=== PATIENT | female | born 2000 | race Caucasian/White ===

== ENCOUNTER 2022-06-12 07:55 | Emergency (ER) | payer OTHER ==
[2022-06-12] VITALS (9 sets, daily range): BP systolic 112–143; BP diastolic 58–96
[~2022-06-12] VITALS: Ht 170.2 cm; Wt 61.0 kg
[~2022-06-12 07:55] MED LIST: AMOXICILLIN250 M2 PO; AMOXICILLIN500 MG PO; AUGMENTIN500TAB PO; AUGMENTIN875TAB PO; AUGMENTINES600 PO; FLUMIST NASA1 LIQ; LOSARTAN POT50 MG PO; MIRACLEMM PO; MUPIROCIN2 % EX; NASONEX50 MCG/AC; OMNICEF300 MG PO; ONDANSETRON4 MG PO; TAMIFLU6 MG/ML PO; TRAMADOL HCL50 MG PO; VERAMYST27.5 MCG; ZOFRAN ODT4 MG PO
[2022-06-12 08:39] LABS: HEMATOCRIT 33.3 % (37.0-47.0); HEMOGLOBIN 11.5 g/dl (12.0-16.0); IMMATURE GRANULOCYTES 0.2 % (0.0-5.0); MEAN CELL VOLUME 84.5 fL CALC (80.0-100.0); MEAN CORPUSCULAR HGB 29.2 pG CALC (26.0-32.0); MEAN CORPUSCULAR HGB CONC 34.5 g/dL CAL (32.0-36.0); NEUT# 3.51 thou/uL (2.00-7.15); RED BLOOD COUNT 3.94 mill/uL (4.20-5.60); RED CELL DISTRI WIDTH 14.3 % (11.5-15.5)
[2022-06-12 08:51] LABS: ALBUMIN 4.4 g/dL (3.2-5.0); ALKALINE PHOSPHATASE 30 u/l (38-126); ANION GAP 12 (6-22 (CALC)); BILIRUBIN, TOTAL 0.5 mg/dL (0.0-1.4); BUN 8 mg/dL (7-17); BUN/CREATININE RATIO 14 (12-20 (CALC)); CARBON DIOXIDE 23 mmol/l (22-30); CHLORIDE 105 mmol/l (95-108); CREATININE 0.6 mg/dL (0.5-1.0); GFR FOR AFR.AMER. > 60 ML/MIN (>=60 (CALC)); GFR OTHER RACES > 60 ML/MIN (>=60 (CALC)); POTASSIUM 3.8 mmol/l (3.5-5.1); SGOT/AST 20 u/l (14-36); SODIUM 137 mmol/l (137-146)
[2022-06-12 10:34] LABS: BETA-HCG, QUANT(RESULT NUMBER) 57791 mIU/mL
== END 2022-06-12 10:10 | disposition home or self-care (01) | DRG 833 ==
LOC: ED 07:55
PROVIDERS: Family Medicine
DX: O46.91 Antepartum hemorrhage, unspecified, first trimester (principal)
CPT/HCPCS: J2790

== ENCOUNTER 2024-04-04 16:13 | Emergency (ER) | payer OTHER ==
[~2024-04-04] VITALS: Ht 170.2 cm; Wt 68.0 kg
[2024-04-04 16:20] VITALS: BP 160/75
[2024-04-04 16:38] LABS: BASO% 0.3 % (0-3); EOS% 1.7 % (0-8); HEMATOCRIT 34.3 % (37.0-47.0); HEMOGLOBIN 10.9 g/dl (12.0-16.0); IMMATURE GRANULOCYTES 0.3 % (0.0-5.0); LYMPH% 20.9 % (15-41); MEAN CELL VOLUME 82.7 fL CALC (80.0-100.0); MEAN CORPUSCULAR HGB 26.3 pG CALC (26.0-32.0); MEAN CORPUSCULAR HGB CONC 31.8 g/dL CAL (32.0-36.0); MONO% 8.4 % (2-13); NEUT# 5.19 thou/uL (2.00-7.15); NEUT% 68.4 % (42-76); RED BLOOD COUNT 4.15 mill/uL (4.20-5.60); RED CELL DISTRI WIDTH 16.4 % (11.5-15.5)
[2024-04-04 16:52] LABS: ALBUMIN 4.7 g/dL (3.2-5.0); BILIRUBIN, TOTAL 0.5 mg/dL (0.02-1.3); CREATININE 0.8 mg/dL (0.5-1.0); POTASSIUM 3.9 mmol/l (3.5-5.1); TOTAL PROTEIN 7.8 g/dL (6.3-8.2)
[2024-04-04] MEDS ORDERED: METRONIDAZOLE500 MG PO (17:36)
[2024-04-04 17:38] VITALS: BP 123/62
[2024-04-04] MEDS ORDERED: RHO IMMUNE GLOBULIN IM ONE (17:40)
[2024-04-04 18:00] VITALS: BP 128/64
[2024-04-04] MEDS ORDERED: ZOFRAN4 MG/TAB PO (18:17)
== END 2024-04-04 18:38 | disposition home or self-care (01) | DRG 833 ==
LOC: ED 16:13
PROVIDERS: Family Medicine
DX: O23.599 Infection of other part of genital tract in pregnancy, unspecified trimester (principal); Z3A.00 Weeks of gestation of pregnancy not specified
CPT/HCPCS: J2790